=== PATIENT | female | born 1950 | race Two or more races ===

== ENCOUNTER 2019-10-31 07:45 | Observation (INO) | payer MEDICARE, OTHER ==
[2019-10-29 09:40] LABS: BASOPHILS % (AUTO) 0.9 % (0.0-2.0); EOSINOPHILS % (AUTO) 2.1 % (1.0-6.0); HEMATOCRIT 39.7 % (36-46); HEMOGLOBIN 13.5 g/dL (12.0-16.0); LYMPHOCYTES # (AUTO) 2.3 K/uL (1.0-4.8); LYMPHOCYTES % (AUTO) 28.9 % (22.0-44.0); MEAN CORPUSCULAR HEMOGLOBIN 30.6 pg (26.0-34.0); MEAN CORPUSCULAR HGB CONC 34.1 G/dL (31.0-37.0); MEAN CORPUSCULAR VOLUME 90 fL (80-100); MONOCYTES # (AUTO) 0.6 K/uL (0.1-1.0); MONOCYTES % (AUTO) 7.3 % (2.0-9.0); NEUTROPHILS # (AUTO) 4.8 K/uL (1.8-7.7); NEUTROPHILS % (AUTO) 60.8 % (40.0-70.0); PLATELET COUNT (AUTO) 388 K/uL (150-450); RED BLOOD CELL COUNT(AUTO) 4.42 MIL/uL (4.00-5.20); RED CELL DISTRIBUTION WIDTH 14.2 % (11.5-14.5)
[2019-10-29 09:47] LABS: CALCIUM, TOTAL 9.4 mg/dL (8.8-10.5); CREATININE 1.15 mg/dL (0.60-1.30); POTASSIUM 3.8 mmol/L (3.5-5.1)
[2019-10-29 09:53] LABS: ALBUMIN 3.7 g/dL (3.4-5.0); BILIRUBIN,TOTAL 0.2 mg/dL (0.1-1.0); TOTAL PROTEIN, SERUM 7.7 g/dL (6.4-8.2)
[2019-10-31] VITALS (11 sets, daily range): BP systolic 100–157; BP diastolic 46–80
[~2019-10-31] VITALS: Ht 154.9 cm; Wt 62.7 kg
[~2019-10-31 07:45] MED LIST: AMLO10TA55 PO; AMYL1CAP63 PO; ASPI-728 PO; ATEN100T92 PO; CLOP75TA32 PO; DOXA2TAB PO; EMPA10TA PO; FENO134C PO; FURO20 PO; HYDR200T4 PO; LIPA1CAP18 PO; LOSA50TA37 PO; RANO10005 PO; SODIUM CHLORIDE 0.9% 1,000 ML ONE; SUCR1TAB28 PO; TOPI25 PO; URSO500T10 PO
[2019-10-31] MEDS ORDERED: SODIUM CHLORIDE 0.9% 1,000 ML IV ONE (08:00)
[2019-10-31 08:58] LABS: GLUCOMETER DEV NAME(LOC) SDS.; GLUCOSE,POINT OF CARE 98 MG/DL (70-110)
[2019-10-31 09:25] LABS: PROTHROMBIN TIME 10.8 SEC (9.4-11.6)
[2019-10-31] MEDS ORDERED: IOHEXOL 300 MG/ML 50 ML VIAL ONE (09:58)
[2019-10-31] MEDS ORDERED: FentaNYL CITRATE-PF 100 MCG/2 ML VIAL ONE (09:58)
[2019-10-31] MEDS ORDERED: MIDAZOLAM HCL 2 MG/2 ML VIAL ONE (09:58)
[2019-10-31] MEDS ORDERED: VERAPAMIL HCL 2.5 MG/ML 2 ML VIAL ONE (09:58)
[2019-10-31] MEDS ORDERED: NITROGLYCERIN 50 MG/D5% WATER 250 ML ONE (09:59)
[2019-10-31] MEDS ORDERED: IOHEXOL 300 MG/ML 150 ML VIAL ONE ×3 (09:59→11:25)
[2019-10-31] MEDS ORDERED: SODIUM BICARBONATE 50 MEQ/50 ML VIAL ONE (09:59)
[2019-10-31] MEDS ORDERED: HEPARIN SODIUM 1000 UNITS/NS 500 ML ONE (09:59)
[2019-10-31] MEDS ORDERED: SODIUM CHLORIDE 0.9% 500 ML IV ONE (11:19)
[2019-10-31] MEDS ORDERED: HEPARIN SODIUM 1000 UNITS/NS 1,000 ML IARTER ONE (11:19)
[2019-10-31] MEDS ORDERED: IOHEXOL 300 MG/ML 150 ML VIAL IARTER ONE (11:30)
[2019-10-31] MEDS ORDERED: FentaNYL CITRATE-PF 100 MCG/2 ML VIAL IVP ONE (11:30)
[2019-10-31] MEDS ORDERED: HEPARIN SODIUM,PORCINE 5,000 UNITS/ML VIAL IVP ONE (11:30)
[2019-10-31] MEDS ORDERED: MIDAZOLAM HCL 2 MG/2 ML VIAL IVP ONE (11:30)
[2019-10-31] MEDS ORDERED: LIDOCAINE 1% 30 ML/SOD BICARB 8.4% 4 ML SQ ONE (11:30)
[2019-10-31] MEDS ORDERED: NITROGLYCERIN/D5W 50 MG/250 ML IV BOTTLE ICOR ONE ×3 (11:30→12:00)
[2019-10-31] MEDS ORDERED: NITROGLYCERIN 2% (1 GM=INCH) PACKET TP ONE (11:56)
[2019-10-31] MEDS ORDERED: ASPIRIN 325 MG TABLET ONE (11:58)
[2019-10-31] MEDS ORDERED: CLOPIDOGREL BISULFATE 75 MG TABLET ONE (11:58)
[2019-10-31] MEDS ORDERED: ASPIRIN 325 MG TABLET PO ONE (12:15)
[2019-10-31] MEDS ORDERED: CLOPIDOGREL BISULFATE 75 MG TABLET PO ONE (12:15)
[2019-10-31] MEDS ORDERED: ALBUTEROL SULFATE HFA 90 MCG/PUFF 8 GM INHALER IH PRN (12:15)
[2019-10-31] MEDS: ATENOLOL 100 MG TABLET PO SCH (14:00)
[2019-10-31] MEDS: AmLODIPine BESYLATE 10 MG TABLET PO SCH (14:00)
[2019-10-31] MEDS ORDERED: ACETAMINOPHEN 325 MG TABLET PO PRN (14:15)
[2019-10-31] MEDS ORDERED: [UNRECOGNIZED DRUG - OTHER] PO SCH (14:15)
[2019-10-31] MEDS ORDERED: ONDANSETRON HCL 4 MG/2 ML VIAL IVP PRN (14:15)
[2019-10-31] MEDS ORDERED: INSULIN LISPRO 100 UNITS/ML SQ PRN (14:15)
[2019-10-31] MEDS ORDERED: DEXTROSE 50%-WATER 25 GM/50 ML SYRINGE IVP PRN (14:15)
[2019-10-31] MEDS ORDERED: ZOLPIDEM TARTRATE 5 MG TABLET PO PRN (14:15)
[2019-10-31] MEDS ORDERED: BISACODYL 10 MG RECTAL RECTAL SUPPOSITORY PR PRN (14:15)
[2019-10-31] MEDS ORDERED: HYDROCODONE/ACETAMINOPHEN 5-325 MG TABLET PO PRN (14:15)
[2019-10-31] MEDS ORDERED: ALBUTEROL SULFATE 2.5 MG/0.5 ML NEB SOLUTION NEB PRN (14:15)
[2019-10-31] MEDS ORDERED: IPRATROPIUM BROMIDE 0.5 MG/2.5 ML NEB SOLUTION NEB PRN (14:15)
[2019-10-31] MEDS ORDERED: MORPHINE SULFATE 2 MG/ML SYRINGE IVP PRN (14:15)
[2019-10-31] MEDS ORDERED: MAGNESIUM HYDROXIDE SUSPENSION 30 ML UDCUP PO PRN (14:15)
[2019-10-31] MEDS: FAMOTIDINE 20 MG TABLET PO SCH (14:48)
[2019-10-31] MEDS: FLUTICASONE/VILANTEROL 200-25 MCG/INH INHALER [14] IH SCH (14:48)
[2019-10-31] MEDS: HEPARIN SODIUM,PORCINE 5,000 UNITS/ML VIAL SQ SCH ×2 (16:13→23:37)
[2019-10-31] MEDS: AMYLASE/LIPASE/PROTEASE 30/6/19 MU DR CAPSULE PO SCH (16:13)
[2019-10-31] MEDS: NITROGLYCERIN 2% (1 GM=INCH) PACKET TP SCH ×2 (16:14→23:37)
[2019-10-31] MEDS: RANOLAZINE 500 MG ER TABLET PO SCH (20:54)
[2019-10-31] MEDS: SUCRALFATE 1 GM TABLET PO SCH (20:54)
[2019-10-31] MEDS: URSODIOL 500 MG TABLET PO SCH (20:54)
[2019-10-31] MEDS: DOCUSATE SODIUM 100 MG CAPSULE PO SCH (20:55)
[2019-10-31] MEDS ORDERED: LATANOPROST 0.005% 2.5 ML OPHTHALMIC SOLUTION OU SCH (21:00)
[2019-11-01 00:30] VITALS: BP 125/64
[2019-11-01 01:34] LABS: GLUCOMETER DEV NAME(LOC) 5S.2B; GLUCOSE,POINT OF CARE 92 MG/DL (70-110)
[2019-11-01 01:34] LABS: GLUCOMETER DEV NAME(LOC) 5S.1; GLUCOSE,POINT OF CARE 128 MG/DL (70-110)
[2019-11-01] MEDS ORDERED: FUROSEMIDE 20 MG TABLET PO SCH (05:00)
[2019-11-01 05:12] VITALS: BP 119/69
[2019-11-01] MEDS: NITROGLYCERIN 2% (1 GM=INCH) PACKET TP SCH ×2 (05:55→12:00)
[2019-11-01 06:22] LABS: GLUCOMETER DEV NAME(LOC) 5S.1; GLUCOSE,POINT OF CARE 104 MG/DL (70-110)
[2019-11-01 06:49] LABS: BASOPHILS % (AUTO) 0.9 % (0.0-2.0); EOSINOPHILS % (AUTO) 1.8 % (1.0-6.0); HEMATOCRIT 37.4 % (36-46); HEMOGLOBIN 12.7 g/dL (12.0-16.0); LYMPHOCYTES # (AUTO) 2.3 K/uL (1.0-4.8); LYMPHOCYTES % (AUTO) 29.3 % (22.0-44.0); MEAN CORPUSCULAR HEMOGLOBIN 30.2 pg (26.0-34.0); MEAN CORPUSCULAR HGB CONC 33.9 G/dL (31.0-37.0); MEAN CORPUSCULAR VOLUME 89 fL (80-100); MONOCYTES # (AUTO) 0.6 K/uL (0.1-1.0); MONOCYTES % (AUTO) 7.7 % (2.0-9.0); NEUTROPHILS # (AUTO) 4.8 K/uL (1.8-7.7); NEUTROPHILS % (AUTO) 60.3 % (40.0-70.0); PLATELET COUNT (AUTO) 354 K/uL (150-450); RED BLOOD CELL COUNT(AUTO) 4.19 MIL/uL (4.00-5.20); RED CELL DISTRIBUTION WIDTH 14.3 % (11.5-14.5)
[2019-11-01 07:33] VITALS: BP 122/68
[2019-11-01 07:43] LABS: ALBUMIN 3.4 g/dL (3.4-5.0); BILIRUBIN,TOTAL 0.4 mg/dL (0.1-1.0); CALCIUM, TOTAL 8.9 mg/dL (8.8-10.5); CREATININE 1.03 mg/dL (0.60-1.30); POTASSIUM 3.8 mmol/L (3.5-5.1); TOTAL PROTEIN, SERUM 6.9 g/dL (6.4-8.2)
[2019-11-01] MEDS ORDERED: DOXAZOSIN MESYLATE 2 MG TABLET PO SCH (09:00)
[2019-11-01] MEDS ORDERED: LOSARTAN POTASSIUM 50 MG TABLET PO SCH (09:00)
[2019-11-01] MEDS ORDERED: CLOPIDOGREL BISULFATE 75 MG TABLET PO SCH (09:00)
[2019-11-01] MEDS ORDERED: ASPIRIN 325 MG EC TABLET PO SCH (09:00)
[2019-11-01] MEDS ORDERED: FENOFIBRATE 48 MG TABLET PO SCH (09:00)
[2019-11-01] MEDS: SUCRALFATE 1 GM TABLET PO SCH (09:06)
[2019-11-01] MEDS: DOCUSATE SODIUM 100 MG CAPSULE PO SCH (09:08)
[2019-11-01] MEDS: ATENOLOL 100 MG TABLET PO SCH (09:08)
[2019-11-01] MEDS: AmLODIPine BESYLATE 10 MG TABLET PO SCH (09:08)
[2019-11-01] MEDS: FAMOTIDINE 20 MG TABLET PO SCH (09:09)
[2019-11-01] MEDS: RANOLAZINE 500 MG ER TABLET PO SCH (09:12)
[2019-11-01] MEDS: AMYLASE/LIPASE/PROTEASE 30/6/19 MU DR CAPSULE PO SCH (09:14)
[2019-11-01] MEDS: URSODIOL 500 MG TABLET PO SCH (09:14)
[2019-11-01] MEDS: FLUTICASONE/VILANTEROL 200-25 MCG/INH INHALER [14] IH SCH (09:15)
[2019-11-01] MEDS: HEPARIN SODIUM,PORCINE 5,000 UNITS/ML VIAL SQ SCH (09:16)
[2019-11-01] MEDS ORDERED: ASPI-989 PO (10:12)
[2019-11-01] MEDS ORDERED: EMPA25TA PO (10:13)
[2019-11-01] MEDS ORDERED: DOXA2TAB PO (10:13)
[2019-11-01] MEDS ORDERED: FLUT1BLS IH (10:14)
[2019-11-01] MEDS ORDERED: ISOS30TA6 PO (10:14)
[2019-11-01 11:22] VITALS: BP 96/51
[2019-11-01 12:27] LABS: GLUCOMETER DEV NAME(LOC) 5S.1; GLUCOSE,POINT OF CARE 155 MG/DL (70-110)
[2019-11-01 13:07] VITALS: BP 97/60
== END 2019-11-01 14:20 | disposition home or self-care (01) ==
LOC: CATHLAB 07:45 → INTOOBSV 07:46 → 5S 07:46
PROVIDERS: ADMIT Internal Medicine Cardiovascular Disease; ATTEND Internal Medicine Cardiovascular Disease
DX: I25.10 Atherosclerotic heart disease of native coronary artery without angina pectoris (principal); Z20.828 Contact with and (suspected) exposure to other viral communicable diseases; I11.0 Hypertensive heart disease with heart failure; I50.9 Heart failure, unspecified; E11.9 Type 2 diabetes mellitus without complications; E78.00 Pure hypercholesterolemia, unspecified; E78.5 Hyperlipidemia, unspecified; M79.7 Fibromyalgia; Z79.899 Other long term (current) drug therapy; Z79.82 Long term (current) use of aspirin; Z79.01 Long term (current) use of anticoagulants; Z95.5 Presence of coronary angioplasty implant and graft; Z98.890 Other specified postprocedural states
CPT/HCPCS: 36415 ×3; 80053 ×2; 82550; 82962 ×2; 85025 ×2; 85610; 85730; 87426; 92920; 92928; 93005 ×2; 93458; 96361 ×2; 96372 ×2; 96374; 96375; 99219; C1760; C1769; C1874; C1887; C9601; C9607; J1644 ×3; J2250; J3010; J3490 ×2; J7030; Q9967; Z7610